=== PATIENT | female | born 1945 | race Two or more races ===

== ENCOUNTER 2021-02-12 18:59 | Emergency (ER) | payer OTHER ==
[~2021-02-12] VITALS: Ht 162.6 cm; Wt 77.1 kg
[2021-02-12] MEDS ORDERED: MICARDIS40 MG (19:30)
== END 2021-02-12 22:21 | disposition home or self-care (01) ==
LOC: ER 18:59
DX: B34.9 Viral infection, unspecified (principal); Z11.52 Encounter for screening for COVID-19